=== PATIENT | female | born 1965 | race Caucasian/White ===

== ENCOUNTER 2016-09-18 23:26 | Emergency (ER) | payer MEDICARE, BC ==
--- NOTE | 2016-09-19 00:20 | ED ---
Recheck HPI - General Chief Complaint: Recheck/Abnormal Lab/Rx Stated Complaint: High K+ Sent by doc Time Seen by Provider: 09/19/16 00:00 Source: patient, family Mode of arrival: EMS Limitations: no limitations - History of Present Illness Initial Comments: This is a 50-year-old female with a history of renal transplant in July of this year who presents here in the ED for hyperkalemia. She had blood drawn earlier today and was called by her quill cleaning machine operator out of [facility] who advised her to come emergency department because her potassium is high. The patient states that she has actually no complaints. She's been urinating normally. Has no abdominal or pelvic pain. No fevers or chills. No palpitations or chest pain. She denies any complaints whatsoever. - Related Data Home Medications Medication Instructions Recorded Confirmed Atorvastatin [Lipitor] 10 mg PO HS 07/20/14 09/18/16 [place]-3 Fatty Acids/Fish Oil [Fish 1 cap PO BID 07/20/14 09/18/16 Oil 1,000 mg Softgel] Ranitidine HCl [Zantac] 150 mg PO BID 07/20/14 09/18/16 predniSONE 10 mg PO DAILY 07/20/14 09/18/16 INSULIN LISPRO (HumaLOG) [HumaLOG] See Protocol SQ ACHS 08/30/15 09/18/16 Insulin Glargine [Lantus] 25 units SQ AC-BRKFST 08/30/15 09/18/16 Mycophenolate Mofetil [Cellcept] 1,000 mg PO BID 08/30/15 09/18/16 Tacrolimus [Prograf] 11 mg PO BID 08/30/15 09/18/16 Aspirin [Adult Low Dose Aspirin EC] 81 mg PO DAILY 02/04/16 09/18/16 Multivitamins, Thera [Multivitamin] 1 tab PO DAILY 03/11/16 09/18/16 Ubidecarenone [Co Q-10] 200 mg PO DAILY 03/11/16 09/18/16 Alendronate Sodium [Fosamax] 35 mg PO 09/18/16 Lisinopril [Zestril] 5 mg PO DAILY 09/18/16 09/18/16 Sulfamethoxazole/Trimethoprim 1 each PO 09/18/16 [Bactrim SS 400-80 mg] valGANciclovir [Valcyte] 450 mg PO 09/18/16 Previous Rx's Medication Instructions Recorded Metoprolol Tartrate [Lopressor] 50 mg PO BID #60 tab 07/24/14 Allergies Allergy/AdvReac Type Severity Reaction Status Date / Time iv iron Allergy Rash/Hives Uncoded 05/19/16 13:01 Review of Systems ROS Statement: Those systems with pertinent positive or pertinent negative responses have been documented in the HPI. ROS Other: All systems not noted in ROS Statement are negative. 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 kidney transplant 07-14-2016 Past Anesthesia/Blood Transfusion Reactions: No Reported Reaction Past Psychological History: No Psychological Hx Reported Smoking Status: Former smoker Past Alcohol Use History: None Reported Additional Past Alcohol Use History / Comment(s): STARTED SMOKING AT AGE 14, SMOKED 1 PPD QUIT 2008 Past Drug Use History: None Reported - Past Family History Father Family Medical History: Diabetes Mellitus, Hypertension Mother Family Medical History: AICD/Pacemaker, Congestive Heart Failure (CHF), Coronary Artery Disease (CAD), CVA/TIA, Diabetes Mellitus, Myocardial Infarction ([place]) General Exam - General Exam Comments Initial Comments: Constitutional: Awake alert Appears comfortable Head: Normocephalic atraumatic Eyes: no conjunctival injection No scleral icterus EOMI Neck: No JVD Supple Heart: Regular rate rhythm normal S1-S2 no murmurs Lungs: Clear to auscultation bilaterally No wheezing No rales Abdomen: Soft nondistended nontender Extremities: Non edematous DP pulses intact Radial pulses intact Neuro: A&Ox3 No focal neurologic deficits Psych: Appropriate mood and affect Limitations: no limitations Course Vital Signs 09/18/16 23:46 Temperature 98.0 F Pulse Rate 54 L Respiratory 18 Rate Blood Pressure 189/74 O2 Sat by Pulse 99 Oximetry - Reevaluation(s) Reevaluation #1: 09/19/16 00:20 EKG showing normal sinus rhythm with a rate of 62. No ST segment changes or T- wave inversions. No peaked T waves. QTC is 428. Other intervals are normal. No ectopy. Medical Decision Making - Medical Decision Making This is a 50-year-old female who presents emergency report for hyperkalemia. Repeat labs showed a potassium of 5.3 which is baseline for her. She has no symptoms at this time. This time I feel that she can go home. There is no intervention that was required. I told her to follow-up with her primary doctor. If she has any change in symptoms she can return. All questions were answered. - Lab Data Result diagrams: 09/19/16 00:13 09/19/16 00:13 Lab Results 09/19/16 09/19/16 Range/Units 00:13 00:13 WBC 9.2 (3.8-10.6) k/uL RBC 3.77 L (3.80-5.40) m/uL Hgb 11.3 L (11.4-16.0) gm/dL Hct 35.7 (34.0-46.0) % MCV 94.6 (80.0-100.0) fL MCH 29.9 (25.0-35.0) pg MCHC 31.6 (31.0-37.0) g/dL RDW 16.6 H (11.5-15.5) % Plt Count 298 (150-450) k/uL Neutrophils % 87 % Lymphocytes % 5 % Monocytes % 3 % Eosinophils % 3 % Basophils % 1 % Neutrophils # 8.0 H (1.3-7.7) k/uL Lymphocytes # 0.5 L (1.0-4.8) k/uL Monocytes # 0.3 (0-1.0) k/uL Eosinophils # 0.2 (0-0.7) k/uL Basophils # 0.1 (0-0.2) k/uL Anisocytosis Slight Sodium 138 (137-145) mmol/L Potassium 5.3 H (3.5-5.1) mmol/L Chloride 105 (98-107) mmol/L Carbon Dioxide 22 (22-30) mmol/L Anion Gap 11 mmol/L BUN 43 H (7-17) mg/dL Creatinine 1.10 H (0.52-1.04) mg/dL Est GFR (MDRD) Af Amer >60 (>60 ml/min/1.73 sqM) Est GFR (MDRD) Non-Af 52 (>60 ml/min/1.73 sqM) Glucose 210 H (74-99) mg/dL Calcium 9.6 (8.4-10.2) mg/dL Magnesium 1.8 (1.6-2.3) mg/dL Disposition Clinical Impression: CKD (chronic kidney disease) Disposition: HOME SELF-CARE Condition: Stable Instructions: Hyperkalemia (ED) Additional Instructions: Please monitor your symptoms for palpitations, chest pain, lightheadedness, or decreased urine output. Return to the emergency Department if you develop these. Otherwise follow up with her primary doctor. Referrals: Emely Funez DO [Primary Care Provider] - 1-2 days
[2016-09-19 00:24] LABS: Anisocytosis Slight; Basophils # (A) 0.1 k/uL (0-0.2); Basophils % (A) 1 %; CH 30.5; CHCM 32.4; Eosinophils # (A) 0.2 k/uL (0-0.7); Eosinophils % (A) 3 %; HCT 35.7 % (34.0-46.0); HDW 3.06; HGB 11.3 gm/dL (11.4-16.0); Luc # (Auto) 0.14; Luc % (Auto) 2; Lymphocytes # (A) 0.5 k/uL (1.0-4.8); Lymphocytes % (A) 5 %; MCH 29.9 pg (25.0-35.0); MCHC 31.6 g/dL (31.0-37.0); MCV 94.6 fL (80.0-100.0); Monocytes # (A) 0.3 k/uL (0-1.0); Monocytes % (A) 3 %; Neutrophils % (A) 87 %; RBC 3.77 m/uL (3.80-5.40); RDW 16.6 % (11.5-15.5); WBC 9.2 k/uL (3.8-10.6); WBC (Perox) 9.79
[2016-09-19 00:34] LABS: Anion Gap 11 mmol/L; Blood Urea Nitrogen 43 mg/dL (7-17); Calcium 9.6 mg/dL (8.4-10.2); Carbon Dioxide 22 mmol/L (22-30); Chloride 105 mmol/L (98-107); Glucose 210 mg/dL (74-99); Magnesium 1.8 mg/dL (1.6-2.3); Non-African American GFR(MDRD) 52 (>60 ml/min/1.73 sqM); Potassium 5.3 mmol/L (3.5-5.1); Sodium 138 mmol/L (137-145)
[2016-09-19 01:08] VITALS: BP 146/77; PULSE 57; RESP 16; TEMP 97.6
== END 2016-09-19 01:24 | disposition home or self-care (01) ==
LOC: EC 23:26
DX: I12.9 Hypertensive chronic kidney disease with stage 1 through stage 4 chronic kidney disease, or unspecified chronic kidney disease (principal); N18.9 Chronic kidney disease, unspecified; E87.5 Hyperkalemia; K21.9 Gastro-esophageal reflux disease without esophagitis; E07.9 Disorder of thyroid, unspecified; E11.9 Type 2 diabetes mellitus without complications; Z87.891 Personal history of nicotine dependence; Z79.4 Long term (current) use of insulin; Z79.82 Long term (current) use of aspirin; Z79.52 Long term (current) use of systemic steroids; Z79.899 Other long term (current) drug therapy; Z88.8 Allergy status to other drugs, medicaments and biological substances; Z85.528 Personal history of other malignant neoplasm of kidney; Z94.0 Kidney transplant status
CPT/HCPCS: 36415; 80048; 83735; 85025; 93005; 99285

== ENCOUNTER 2016-12-25 18:34 | Emergency (ER) | payer MEDICARE, BC ==
[2016-12-25 19:23] VITALS: RESP 18
--- NOTE | 2016-12-25 19:46 | ED ---
Recheck HPI - General Chief Complaint: Recheck/Abnormal Lab/Rx Stated Complaint: abn labs Time Seen by Provider: 12/25/16 19:00 Source: patient, RN notes reviewed Mode of arrival: ambulatory Limitations: no limitations - History of Present Illness Initial Comments: This is a 51-year-old female who is status post her second kidney transplant on July 14 of this year was called by the lab and told currently emergency department for evaluation due to elevated potassium level. Patient states she normally does have a somewhat elevated level greater than 5.6 apparently today. He is asymptomatic she has no palpitations dizziness chest pain or shoulder sweats. She states normally she is told to take either Kayexalate her Lasix when the potassium is high. She voices no other complaints at this time. MD Complaint: abnormal lab - Related Data Home Medications Medication Instructions Recorded Confirmed Atorvastatin [Lipitor] 10 mg PO HS 07/20/14 12/25/16 [place]-3 Fatty Acids/Fish Oil [Fish 1 cap PO BID 07/20/14 12/25/16 Oil 1,000 mg Softgel] Ranitidine HCl [Zantac] 150 mg PO BID 07/20/14 12/25/16 predniSONE 5 mg PO DAILY 07/20/14 12/25/16 INSULIN LISPRO (HumaLOG) [HumaLOG] See Protocol SQ ACHS 08/30/15 12/25/16 Insulin Glargine [Lantus] 22 units SQ QAM 08/30/15 12/25/16 Mycophenolate Mofetil [Cellcept] 1,000 mg PO QAM 08/30/15 12/25/16 Tacrolimus [Prograf] 5 mg PO BID 08/30/15 12/25/16 Aspirin [Adult Low Dose Aspirin EC] 81 mg PO HS 02/04/16 12/25/16 Multivitamins, Thera [Multivitamin] 1 tab PO DAILY 03/11/16 12/25/16 Ubidecarenone [Co Q-10] 200 mg PO HS 03/11/16 12/25/16 Alendronate Sodium [Fosamax] 35 mg PO FR 09/18/16 12/25/16 Sulfamethoxazole/Trimethoprim 1 tab PO QAM 09/18/16 12/25/16 [Bactrim SS 400-80 mg] Ergocalciferol (Vitamin D2) 50,000 unit PO TU 12/25/16 12/25/16 [Vitamin D2] Insulin Glargine [Lantus] 18 unit SQ HS 12/25/16 12/25/16 Iron 150mg 150 mg PO DAILY 12/25/16 12/25/16 Metoprolol Tartrate [Lopressor] 25 mg PO BID 12/25/16 12/25/16 Mycophenolate Mofetil [Cellcept] 250 mg PO HS 12/25/16 12/25/16 Tacrolimus [Prograf] 2 mg PO BID 12/25/16 12/25/16 buPROPion [Wellbutrin] 75 mg PO DAILY 12/25/16 12/25/16 Previous Rx's Medication Instructions Recorded Sodium Polystyrene Sulfonate 15 gm PO ONCE #1 ml 12/25/16 [Kayexalate] Allergies Allergy/AdvReac Type Severity Reaction Status Date / Time iv iron Allergy Rash/Hives Uncoded 12/25/16 19:52 Review of Systems ROS Statement: Those systems with pertinent positive or pertinent negative responses have been documented in the HPI. ROS Other: All systems not noted in ROS Statement are negative. Past Medical History Past Medical History: Cancer, Diabetes Mellitus, Dialysis, GERD/Reflux, Hypertension, Pneumonia, Renal Disease, Thyroid Disorder Additional Past Medical History / Comment(s): KIDNEY CA(LT),PERITONEAL DIALYSIS [id number],PANCREATITIS History of Any Multi-Drug Resistant Organisms: C-DIFF Date of last positivie culture/infection: 08/19/15 MDRO Source:: STOOL Additional Past Surgical History / Comment(s): kidney transplant 2008, nephrectomy,D&C. 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 kidney transplant 07-14-2016 Past Anesthesia/Blood Transfusion Reactions: No Reported Reaction Past Psychological History: No Psychological Hx Reported Smoking Status: Former smoker Past Alcohol Use History: None Reported Past Drug Use History: None Reported - Past Family History Father Family Medical History: Diabetes Mellitus, Hypertension Mother Family Medical History: AICD/Pacemaker, Congestive Heart Failure (CHF), Coronary Artery Disease (CAD), CVA/TIA, Diabetes Mellitus, Myocardial Infarction ([place]) General Exam - General Exam Comments Initial Comments: This is a well-developed well-nourished awake alert oriented 3 female Limitations: no limitations General appearance: alert, in no apparent distress Head exam: Present: atraumatic, normocephalic, normal inspection Eye exam: Present: normal appearance, PERRL, EOMI. Absent: scleral icterus, conjunctival injection, periorbital swelling ENT exam: Present: normal exam, mucous membranes moist Neck exam: Present: normal inspection. Absent: tenderness, meningismus, lymphadenopathy Respiratory exam: Present: normal lung sounds bilaterally. Absent: respiratory distress, wheezes, rales, rhonchi, stridor Cardiovascular Exam: Present: regular rate, normal rhythm, normal heart sounds. Absent: systolic murmur, diastolic murmur, rubs, gallop, clicks GI/Abdominal exam: Present: soft, normal bowel sounds. Absent: distended, tenderness, guarding, rebound, rigid Extremities exam: Present: normal inspection, full ROM, normal capillary refill. Absent: tenderness, pedal edema, joint swelling, calf tenderness Back exam: Present: normal inspection Neurological exam: Present: alert, oriented X3, CN II-XII intact Psychiatric exam: Present: normal affect, normal mood Skin exam: Present: warm, dry, intact, normal color. Absent: rash Course Vital Signs 12/25/16 12/25/16 12/25/16 18:53 19:21 20:24 Temperature 97.8 F 97.6 F Pulse Rate 58 L 58 L Respiratory 20 18 18 Rate Blood Pressure 135/69 151/81 O2 Sat by Pulse 99 98 Oximetry Medical Decision Making - Medical Decision Making I did discuss findings with the patient she is asymptomatic. She states her creatinine has been fluctuating. She does have "dysuria from just. It was recommended she increase her oral fluids she'll be given a dose of Kayexalate is a follow-up with her doctor and return when necessary the fluctuation is within the boundaries that she's been noticing. - Lab Data Result diagrams: 12/25/16 19:15 Lab Results 12/25/16 Range/Units 19:15 Sodium 139 (137-145) mmol/L Potassium 5.5 H (3.5-5.1) mmol/L Chloride 106 (98-107) mmol/L Carbon Dioxide 25 (22-30) mmol/L Anion Gap 8 mmol/L BUN 34 H (7-17) mg/dL Creatinine 1.28 H (0.52-1.04) mg/dL Est GFR (MDRD) Af Amer 53 (>60 ml/min/1.73 sqM) Est GFR (MDRD) Non-Af 44 (>60 ml/min/1.73 sqM) Glucose 183 H (74-99) mg/dL Calcium 9.6 (8.4-10.2) mg/dL Total Bilirubin 0.5 (0.2-1.3) mg/dL AST 151 H (14-36) U/L ALT 19 (9-52) U/L Alkaline Phosphatase 53 (38-126) U/L Total Protein 7.1 (6.3-8.2) g/dL Albumin 4.3 (3.5-5.0) g/dL - EKG Data -: EKG Interpreted by Md EKG shows normal: sinus rhythm (Sinus rhythm with a rate of 53 NE interval 118 QRS duration 82 QT/QTC of 464/[address] configuration) Disposition Clinical Impression: Hyperkalemia, Prerenal azotemia, Dehydration Disposition: HOME SELF-CARE Condition: Good Instructions: Hyperkalemia (ED), Dehydration (ED) Prescriptions: Sodium Polystyrene Sulfonate [Kayexalate] 15 gm PO ONCE #1 ml Referrals: Emely Funez DO [Primary Care Provider] - 1-2 days
[2016-12-25 20:18] LABS: Calcium 9.6 mg/dL (8.4-10.2); Potassium 5.5 mmol/L (3.5-5.1); Total Bilirubin 0.5 mg/dL (0.2-1.3); Total Protein 7.1 g/dL (6.3-8.2)
[2016-12-25] MEDS ORDERED: SODIUM POLYSTYRENE SULFONATE 15 GM/60 ML BOTTLE PO ONE (20:46)
[2016-12-25 21:12] VITALS: BP 130/75; PULSE 55; TEMP 97.3
== END 2016-12-25 21:12 | disposition home or self-care (01) ==
LOC: EC 18:34
DX: E87.5 Hyperkalemia (principal); R79.89 Other specified abnormal findings of blood chemistry; E86.0 Dehydration; E11.9 Type 2 diabetes mellitus without complications; K21.9 Gastro-esophageal reflux disease without esophagitis; I10 Essential (primary) hypertension; E07.9 Disorder of thyroid, unspecified; Z85.528 Personal history of other malignant neoplasm of kidney; Z87.891 Personal history of nicotine dependence; Z88.8 Allergy status to other drugs, medicaments and biological substances; Z79.4 Long term (current) use of insulin; Z79.52 Long term (current) use of systemic steroids; Z79.82 Long term (current) use of aspirin; Z79.899 Other long term (current) drug therapy
CPT/HCPCS: 36415; 80053; 93005; 99283

== ENCOUNTER → 2018-03-30 | Outpatient (CLI) | payer MEDICARE, BC ==
--- NOTE | 2018-03-30 14:50 | BD ---
EXAMINATION TYPE: Axial Bone Density DATE OF EXAM: 03/30/2018 COMPARISON: 03.24.2016 CLINICAL HISTORY: 52 YR OLD FEMALE.....ICD-10 CODE: M81.8 OTHER OSTEOPOROSIS Height: 64 Weight: 183 FRAX RISK QUESTIONS: Glucocorticoids (More than 3mos): YES (Ex: prednisone, prednisolone, methylprednisolone, dexamethasone, and hydrocortisone). History of Fracture in Adulthood: YES Secondary Osteoporosis: YES 1. Type 1 Diabetes: YES 2. Hyperthyroidism: YES RISK FACTORS HISTORY OF: FX TO RT FOOT AT 50 YRS OLD Family History of Osteoporosis: YES, MOTHER AND GRANDMOTHER Diet low in dairy products/other sources of calcium: NO Postmenopausal woman: 47 YRS OLD MEDICATIONS: Prednisone or other steroids: YES, HEAVY, RENAL TRANSPLANT PT. How Long FOR 9 YRS Osteoporosis Medications: STOPPED FOSAMAX IN OCTOBER 2017..TOOK FOR FEW YRS Additional Medications: ANTI REJECTION MEDS, BP MEDS, HX OF KIDNEY CA, WELLBUTRIN UNTIL 2 MOS AGO, [facility] ATINS FOR CHOLESTEROL, INSULIN REFLUX MEDICATION, VIT D AND CALCIUM STOPPED FEW MOS AGO, MULTIVITAMIN NOW. Additional History: TRANSPLANT PATIENT, ANXIETY, HYPERTENSION, DIABETIC. EXAM MEASUREMENTS: Bone mineral densitometry was performed using the [employer] System. Bone mineral density as measured about the Lumbar spine is: ----- L1-L4(G/cm2): 1.310 T Score Values are as follows: ----- L1: -0.2 ----- L2: 1.1 ----- L3: 2.2 ----- L4: 0.8 ----- L1-L4: 1.1 Bone mineral density has: Increased 8.3% since study of: 03.24.2016 Bone mineral density about the R hip (g/cm2): 0.704 Bone mineral density about the L hip (g/cm2): 0.713 T Score values are as follows: -----R Neck: -2.0 -----L Neck: -1.9 -----R Total: -2.4 -----L Total: -2.3 Bone mineral density has: Increased 2.3% since study of: 03.24.2016 FRAX%s: THERE IS A 19.4% CHANCE OF A MAJOR OSTEOPOROTIC FX AND A 3.1% FOR A HIP FX.....PROBABILITY OF FX IN 10 YRS TIME IMPRESSION: Osteopenia (T Score between -2.5 and -1). There is slightly increased risk of fracture and the patient may be considered for treatment. Re-Screen 2-5 years. NOTE: T-SCORE=SD OF THE YOUNG ADULT MEAN.
--- NOTE | 2018-04-01 11:44 | MM ---
Reason for exam: screening (asymptomatic). Last mammogram was performed 2 years ago. History: Patient is postmenopausal and has history of other cancer at age 39. Physical Findings: A clinical breast exam by your physician is recommended on an annual basis and results should be correlated with mammographic findings. MG 3D Screening Mammo W/Cad Bilateral CC and MLO view(s) were taken. Prior study comparison: March 24, 2016, bilateral MG 3d screening mammo w/cad. April 22, 2013, [facility] DIGITAL LEFT BREAST MAMMOGRAM w/CAD. There are scattered fibroglandular densities. No significant changes when compared with prior studies. ASSESSMENT: Negative, BI-RAD 1 RECOMMENDATION: Routine screening mammogram of both breasts in 1 year.
== END | disposition home or self-care (01) ==
LOC: RADMAMWWP 13:13
PROVIDERS: ATTEND Family Medicine
DX: Z12.31 Encounter for screening mammogram for malignant neoplasm of breast (principal); M85.80 Other specified disorders of bone density and structure, unspecified site; M81.8 Other osteoporosis without current pathological fracture
CPT/HCPCS: 77063; 77067; 77080

== ENCOUNTER 2018-08-31 16:07 | Emergency (ER) | payer MEDICARE, BC ==
[2018-08-31 16:14] VITALS: RESP 18; TEMP 98.2
[2018-08-31] MEDS ORDERED: SODIUM CHLORIDE 0.9% 1,000 ML IV STA (16:37)
--- NOTE | 2018-08-31 16:47 | ED ---
General Adult HPI - General Source: patient, RN notes reviewed Mode of arrival: wheelchair Limitations: no limitations <Jason Dueñas - Last Filed: 08/31/18 16:59> <Danny Weeks - Last Filed: 08/31/18 20:58> - General Chief complaint: Weakness Stated complaint: weakness-Dr sent Time Seen by Provider: 08/31/18 16:21 - History of Present Illness Initial comments: Patient 52-year-old female significant past medical history for kidney transplant, presented to the emergency room today with a chief complaint of leg weakness. She states that yesterday when she was at her eye doctor's appointment she had her legs crossed when she went to stand up and felt that her legs were unsteady. She states she is continuing to have this feeling today. Patient does admit that she's had some cough congestion over the last month. She denies any fever. She does admit to increased sinus congestion. She states that when she was at the sack cleaning hand office yesterday she had her eyes dilated. She states after that she did have an episode of nausea vomiting. Denies any nausea today. Patient does admit that she followed her family doctor about the symptoms today was advised come here to the emergency room. She does admit that with the sinus congestion she has been expressing headaches over the past week. She states that they were both in the front and back at different times. Patient denies any other complaints. Patient denies any recent fever, chills, shortness of breath, chest pain, back pain, numbness or tingling, visual changes, or any other complaints. (Jason Dueñas) - Related Data Home Medications Medication Instructions Recorded Confirmed Atorvastatin [Lipitor] 10 mg PO HS 07/20/14 08/31/18 O'Neals-3 Fatty Acids/Fish Oil [Fish 1 cap PO DAILY 07/20/14 08/31/18 Oil 1,000 mg Softgel] Ranitidine HCl [Zantac] 150 mg PO BID 07/20/14 08/31/18 predniSONE 5 mg PO DAILY 07/20/14 08/31/18 INSULIN LISPRO (HumaLOG) [HumaLOG] See Protocol SQ ACHS 08/30/15 08/31/18 Insulin Glargine [Lantus] 27 units SQ BID 08/30/15 08/31/18 Mycophenolate Mofetil [Cellcept] 1,000 mg PO BID 08/30/15 08/31/18 Tacrolimus [Prograf] 5 mg PO BID 08/30/15 08/31/18 Aspirin [Adult Low Dose Aspirin EC] 81 mg PO DIRECTED 02/04/16 08/31/18 Multivitamins, Thera [Multivitamin] 1 tab PO DAILY 03/11/16 08/31/18 Ubidecarenone [Co Q-10] 200 mg PO HS 03/11/16 08/31/18 Metoprolol Tartrate [Lopressor] 25 mg PO BID 12/25/16 08/31/18 Tacrolimus [Prograf] 1 mg PO BID 12/25/16 08/31/18 L.acidoph,Paracasei, B.lactis 1 cap PO DAILY 08/31/18 08/31/18 [Probiotic] Allergies Allergy/AdvReac Type Severity Reaction Status Date / Time iv iron Allergy Rash/Hives Uncoded 08/31/18 17:03 Review of Systems ROS Other: All systems not noted in ROS Statement are negative. <Jason Dueñas - Last Filed: 08/31/18 16:59> ROS Other: All systems not noted in ROS Statement are negative. <Danny Weeks - Last Filed: 08/31/18 20:58> ROS Statement: Those systems with pertinent positive or pertinent negative responses have been documented in the HPI. Past Medical History Past Medical History: Cancer, Diabetes Mellitus, Dialysis, GERD/Reflux, Hypertension, Pneumonia, Renal Disease, Thyroid Disorder Additional Past Medical History / Comment(s): KIDNEY CA(LT),PERITONEAL DIALYSIS [id number],PANCREATITIS History of Any Multi-Drug Resistant Organisms: C-DIFF Date of last positivie culture/infection: 08/19/15 MDRO Source:: STOOL Additional Past Surgical History / Comment(s): kidney transplant 2008, nephrectomy,D&C. 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 kidney transplant 07-14-2016 Past Anesthesia/Blood Transfusion Reactions: No Reported Reaction Past Psychological History: No Psychological Hx Reported Smoking Status: Former smoker - Past Family History Father Family Medical History: Diabetes Mellitus, Hypertension Mother Family Medical History: AICD/Pacemaker, Congestive Heart Failure (CHF), Coronary Artery Disease (CAD), CVA/TIA, Diabetes Mellitus, Myocardial Infarction (ND) <Jason Dueñas - Last Filed: 08/31/18 16:59> General Exam Limitations: no limitations <Jason Dueñas - Last Filed: 08/31/18 16:59> General appearance: alert, in no apparent distress Head exam: Present: atraumatic, normocephalic, normal inspection Eye exam: Present: normal appearance, PERRL, EOMI. Absent: scleral icterus, conjunctival injection, periorbital swelling ENT exam: Present: normal exam, mucous membranes moist Neck exam: Present: normal inspection. Absent: tenderness, meningismus, lymphadenopathy Respiratory exam: Present: normal lung sounds bilaterally. Absent: respiratory distress, wheezes, rales, rhonchi, stridor Cardiovascular Exam: Present: regular rate, normal rhythm, normal heart sounds. Absent: systolic murmur, diastolic murmur, rubs, gallop, clicks GI/Abdominal exam: Present: soft, normal bowel sounds. Absent: distended, tenderness, guarding, rebound, rigid Extremities exam: Present: normal inspection, full ROM, normal capillary refill. Absent: tenderness, pedal edema, joint swelling, calf tenderness Back exam: Present: normal inspection Neurological exam: Present: alert, oriented X3, CN II-XII intact Psychiatric exam: Present: normal affect, normal mood Skin exam: Present: warm, dry, intact, normal color. Absent: rash <Danny Weeks - Last Filed: 08/31/18 20:58> - General Exam Comments Initial Comments: General: The patient is awake and alert, in no distress, and does not appear acutely ill. Eye: Pupils are equal, round and reactive to light, extra-ocular movements are intact. No nystagmus. There is normal conjunctiva bilaterally. No signs of icterus. Ears, nose, mouth and throat: There are moist mucous membranes and no oral lesions. Neck: The neck is supple, there is no tenderness or JVD. Cardiovascular: There is a regular rate and rhythm. No murmur, rub or gallop is appreciated. Respiratory: Lungs are clear to auscultation, respirations are non-labored, breath sounds are equal. No wheezes, stridor, rales, or rhonchi. Gastrointestinal: Soft, non-distended, non-tender abdomen without masses or organomegaly noted. There is no rebound or guarding present. No CVA tenderness. Musculoskeletal: Normal ROM, no tenderness. Strength 5/5. Sensation intact. Neurological: A&O x 3. CN II-XII intact, There are no obvious motor or sensory deficits. Coordination appears grossly intact. Speech is normal. Normal finger nose testing. Normal rapid alternating movements. Strength 5/5 bilaterally both upper and lower extremities. Skin: Skin is warm and dry and no rashes or lesions are noted. Psychiatric: Cooperative, appropriate mood & affect, normal judgment. (Jason Dueñas) Course <Jason Dueñas - Last Filed: 08/31/18 16:59> <Danny Weeks - Last Filed: 08/31/18 20:58> Vital Signs 08/31/18 08/31/18 08/31/18 16:11 17:30 18:00 Temperature 98.2 F Pulse Rate 60 55 L 56 L Respiratory 18 14 24 Rate Blood Pressure 151/73 175/87 153/77 O2 Sat by Pulse 99 97 99 Oximetry 08/31/18 08/31/18 18:30 19:00 Temperature Pulse Rate 58 L 60 Respiratory 18 18 Rate Blood Pressure 146/135 175/79 O2 Sat by Pulse 100 99 Oximetry - Reevaluation(s) Reevaluation #1: 08/31/18 16:59 Case discussed and signed out to attending physician Dr. Weeks. (Jason Dueñas) Reevaluation #2: 08/31/18 20:20 Medical record is reviewed (Danny Weeks) Reevaluation #3: 08/31/18 20:20 Patient spoke with at length regarding positive minuses of lumbar puncture. Secondary to come from his immune system and immunosuppressants, patient will elect to go through with LP at this time (Danny Weeks) Reevaluation #4: 08/31/18 20:56 Did attempt lumbar puncture but did just receive) return, subject possibly to bloody tap secondary to hitting a spinal artery versus gross CSF blood, noting again CT brain was negative and patient without headache (Danny Weeks) - Consultations Consultation #1: Spoke with Mingo Lunaum was agreeable for transfer (Danny Weeks) EKG Findings - EKG Comments: EKG Findings:: EKG shows sinus bradycardia rate of 56, MA 124, QRS 94, QTc 434 <Danny Weeks - Last Filed: 08/31/18 20:58> Procedures - Lumbar Puncture Consent Obtained: verbal consent Indication for Procedure: headache, change in mental status Patient Position: sitting upright/leaning forward Skin Prep: Povidone-Iodine 1% Local Anesthetic Used: Lidocaine 1% Spinal Needle Gauge: 22G Spinal Needle Length: 3.5in Interspace Used: L4-L5 Complications: none Patient Tolerated Procedure: well <Danny Weeks - Last Filed: 08/31/18 20:58> Medical Decision Making <Jason Dueñas - Last Filed: 08/31/18 16:59> - Lab Data Result diagrams: 08/31/18 17:20 08/31/18 17:20 - Radiology Data Radiology results: report reviewed (CXR negative for acute disease, CT brain negative for acute disease), image reviewed <Danny Weeks - Last Filed: 08/31/18 20:58> - Medical Decision Making 52 female the ER for evaluation. Patient is nonspecific neurological complaints ataxia weakness and headaches for 3 days. [place] worsened and patient states she does not feel well. Patient is immunosuppressed secondary to steroids and Prograf, patient be transferred for neurological evaluation regarding encephalitis versus subclinical meningitis, place on antibiotics and will also have neurosurgical evaluation (Danny Weeks) - Lab Data Lab Results 08/31/18 08/31/18 08/31/18 Range/Units 17:20 17:20 17:20 WBC 7.6 (3.8-10.6) k/uL RBC 4.23 (3.80-5.40) m/uL Hgb 12.5 (11.4-16.0) gm/dL Hct 38.2 (34.0-46.0) % MCV 90.2 (80.0-100.0) fL MCH 29.7 (25.0-35.0) pg MCHC 32.9 (31.0-37.0) g/dL RDW 14.2 (11.5-15.5) % Plt Count 226 (150-450) k/uL Neutrophils % 80 % Lymphocytes % 14 % Monocytes % 3 % Eosinophils % 2 % Basophils % 1 % Neutrophils # 6.1 (1.3-7.7) k/uL Lymphocytes # 1.0 (1.0-4.8) k/uL Monocytes # 0.3 (0-1.0) k/uL Eosinophils # 0.1 (0-0.7) k/uL Basophils # 0.1 (0-0.2) k/uL Sodium 139 (137-145) mmol/L Potassium 4.9 (3.5-5.1) mmol/L Chloride 110 H (98-107) mmol/L Carbon Dioxide 21 L (22-30) mmol/L Anion Gap 8 mmol/L BUN 27 H (7-17) mg/dL Creatinine 0.95 (0.52-1.04) mg/dL Est GFR (CKD-EPI)AfAm 80 (>60 ml/min/1.73 sqM) Est GFR (CKD-EPI)NonAf 69 (>60 ml/min/1.73 sqM) Glucose 203 H (74-99) mg/dL Calcium 9.8 (8.4-10.2) mg/dL Total Bilirubin 0.3 (0.2-1.3) mg/dL AST 99 H (14-36) U/L ALT 30 (9-52) U/L Alkaline Phosphatase 44 (38-126) U/L Total Creatine Kinase 53 (30-135) U/L CK-MB (CK-2) 0.4 (0.0-2.4) ng/mL CK-MB (CK-2) Rel Index 0.8 Troponin I <0.012 (0.000-0.034) ng/mL Total Protein 6.8 (6.3-8.2) g/dL Albumin 4.1 (3.5-5.0) g/dL Urine Color Urine Appearance (Clear) Urine pH (5.0-8.0) Ur Specific [place] (1.001-1.035) Urine Protein (Negative) Urine Glucose (UA) (Negative) Urine Ketones (Negative) Urine Blood (Negative) Urine Nitrite (Negative) Urine Bilirubin (Negative) Urine Urobilinogen (<2.0) mg/dL Ur Leukocyte Esterase (Negative) 08/31/18 Range/Units 18:48 WBC (3.8-10.6) k/uL RBC (3.80-5.40) m/uL Hgb (11.4-16.0) gm/dL Hct (34.0-46.0) % MCV (80.0-100.0) fL MCH (25.0-35.0) pg MCHC (31.0-37.0) g/dL RDW (11.5-15.5) % Plt Count (150-450) k/uL Neutrophils % % Lymphocytes % % Monocytes % % Eosinophils % % Basophils % % Neutrophils # (1.3-7.7) k/uL Lymphocytes # (1.0-4.8) k/uL Monocytes # (0-1.0) k/uL Eosinophils # (0-0.7) k/uL Basophils # (0-0.2) k/uL Sodium (137-145) mmol/L Potassium (3.5-5.1) mmol/L Chloride (98-107) mmol/L Carbon Dioxide (22-30) mmol/L Anion Gap mmol/L BUN (7-17) mg/dL Creatinine (0.52-1.04) mg/dL Est GFR (CKD-EPI)AfAm (>60 ml/min/1.73 sqM) Est GFR (CKD-EPI)NonAf (>60 ml/min/1.73 sqM) Glucose (74-99) mg/dL Calcium (8.4-10.2) mg/dL Total Bilirubin (0.2-1.3) mg/dL AST (14-36) U/L ALT (9-52) U/L Alkaline Phosphatase (38-126) U/L Total Creatine Kinase (30-135) U/L CK-MB (CK-2) (0.0-2.4) ng/mL CK-MB (CK-2) Rel Index Troponin I (0.000-0.034) ng/mL Total Protein (6.3-8.2) g/dL Albumin (3.5-5.0) g/dL Urine Color Light Yellow Urine Appearance Clear (Clear) Urine pH 5.0 (5.0-8.0) Ur Specific [place] 1.013 (1.001-1.035) Urine Protein Negative (Negative) Urine Glucose (UA) Negative (Negative) Urine Ketones Negative (Negative) Urine Blood Negative (Negative) Urine Nitrite Negative (Negative) Urine Bilirubin Negative (Negative) Urine Urobilinogen <2.0 (<2.0) mg/dL Ur Leukocyte Esterase Negative (Negative) Disposition <Jason Dueñas - Last Filed: 08/31/18 16:59> Is patient prescribed a controlled substance at d/c from ED?: No - Out of Hospital Transfer - Req. Specs Out of Hospital Transfer - Requested Specifics: Other Emergency Center ([facility]) <Danny Weeks - Last Filed: 08/31/18 20:58> Clinical Impression: Headache, Ataxia, Immunosuppression due to drug therapy Narrative: [facility] v Encephalitis (Danny Weeks) Disposition: OTHER INSTITUTION NOT DEFINED Condition: Fair Referrals: Emely Funez DO [Primary Care Provider] - 1-2 days
[2018-08-31 17:36] LABS: Basophils # (A) 0.1 k/uL (0-0.2); Basophils % (A) 1 %; Eosinophils # (A) 0.1 k/uL (0-0.7); Eosinophils % (A) 2 %; HCT 38.2 % (34.0-46.0); HGB 12.5 gm/dL (11.4-16.0); Lymphocytes % (A) 14 %; MCH 29.7 pg (25.0-35.0); MCHC 32.9 g/dL (31.0-37.0); MCV 90.2 fL (80.0-100.0); Mean Platelet Volume 7.4; Monocytes # (A) 0.3 k/uL (0-1.0); Monocytes % (A) 3 %; Neutrophils # (A) 6.1 k/uL (1.3-7.7); Neutrophils % (A) 80 %; Platelet Count 226 k/uL (150-450); RBC 4.23 m/uL (3.80-5.40); RDW 14.2 % (11.5-15.5); WBC 7.6 k/uL (3.8-10.6)
[2018-08-31 17:52] LABS: Creatine Kinase 53 U/L (30-135)
[2018-08-31 17:53] LABS: Albumin 4.1 g/dL (3.5-5.0); Calcium 9.8 mg/dL (8.4-10.2); Potassium 4.9 mmol/L (3.5-5.1); Total Bilirubin 0.3 mg/dL (0.2-1.3); Total Protein 6.8 g/dL (6.3-8.2)
[2018-08-31 18:04] LABS: Creatine Kinase MB 0.4 ng/mL (0.0-2.4); Troponin I <0.012 ng/mL (0.000-0.034)
--- NOTE | 2018-08-31 18:17 | CT ---
EXAMINATION TYPE: CT brain wo con DATE OF EXAM: 08/31/2018 COMPARISON: None HISTORY: Dizziness CT DLP: 1046.4 mGycm Automated exposure control for dose reduction was used. FINDINGS: Ventricles have normal size. There is no mass effect nor midline shift. There is some white matter hy podensity in the left occipital and posterior parietal and temporal lobe. There is no evidence of int racranial hemorrhage. Calvarium is intact. IMPRESSION: Mild atrophy. There is some mild white matter hypodensity left posterior cerebral hemisphere consiste nt with small vessel ischemia. No cortical infarct.
--- NOTE | 2018-08-31 18:24 | XR ---
EXAMINATION TYPE: XR chest 2V DATE OF EXAM: 08/31/2018 COMPARISON: 07/22/2014 HISTORY: Weakness TECHNIQUE: Frontal and lateral views of the chest are obtained. FINDINGS: Heart and mediastinum are normal. Lungs are clear. Diaphragm is normal. Bony thorax is int act. IMPRESSION: Normal chest. No change.
[2018-08-31 18:58] LABS: Appearance,Urine Clear (Clear); Bilirubin,Urine Negative (Negative); Blood,Urine Negative (Negative); Color,Urine Light Yellow; Glucose,Urine (UA) Negative (Negative); Ketones,Urine Negative (Negative); Leukocyte Esterase,Urine Negative (Negative); Nitrite,Urine Negative (Negative); Protein,Urine Negative (Negative); Specific Gravity,Urine 1.013 (1.001-1.035); Urobilinogen,Urine <2.0 mg/dL (<2.0)
[2018-08-31] MEDS ORDERED: VANCOMYCIN IV PER PHARMACY 1 EACH MISC MISCELLANE PRN (20:58)
[2018-08-31 21:26] VITALS: BP 157/83; PULSE 53
[2018-08-31] MEDS ORDERED: SODIUM CHLORIDE 0.9% IV ONE (21:30)
[2018-08-31] MEDS ORDERED: VANCOMYCIN 1,750 MG in SODIUM CHLORIDE 0.9% 500 ML 500 ML IVPB ONE (21:30)
[2018-08-31] MEDS ORDERED: ACYCLOVIR SODIUM IV ONE (21:30)
[2018-08-31 21:31] LABS: Glucose,Whole Blood 89 mg/dL (75-99)
== END 2018-08-31 22:17 | disposition other institution (70) ==
LOC: EC 16:07
DX: R27.0 Ataxia, unspecified (principal); R51 Headache; D89.9 Disorder involving the immune mechanism, unspecified; R53.1 Weakness; R11.2 Nausea with vomiting, unspecified; R09.89 Other specified symptoms and signs involving the circulatory and respiratory systems; K21.9 Gastro-esophageal reflux disease without esophagitis; I12.0 Hypertensive chronic kidney disease with stage 5 chronic kidney disease or end stage renal disease; E11.22 Type 2 diabetes mellitus with diabetic chronic kidney disease; N18.6 End stage renal disease; Z85.528 Personal history of other malignant neoplasm of kidney; Z99.2 Dependence on renal dialysis; Z94.0 Kidney transplant status; Z90.5 Acquired absence of kidney; Z87.891 Personal history of nicotine dependence; Z79.52 Long term (current) use of systemic steroids; Z79.4 Long term (current) use of insulin; Z79.82 Long term (current) use of aspirin; Z79.899 Other long term (current) drug therapy; Z88.8 Allergy status to other drugs, medicaments and biological substances; Z53.8 Procedure and treatment not carried out for other reasons
CPT/HCPCS: 99285; 62270; 96365; 96361 ×4; 36415; 93005; 80053; 82550; 82553; 84484; 85025; 81003; 87070; 87205; 71046; 70450; J0696

== ENCOUNTER → 2022-01-01 | Outpatient (CLI) | payer MEDICARE ==
--- NOTE | 2022-01-03 15:04 | BD ---
EXAMINATION TYPE: Axial Bone Density DATE OF EXAM: 01/01/2022 COMPARISON: 03.30.2018 CLINICAL HISTORY: 56 years year old Female. ICD-10 CODE: [id number] OT DISRD OF BONE DENSITY AND STRUCTU RE Height: 63.6 Weight: 168 FRAX RISK QUESTIONS: Glucocorticoids (More than 3mos): YES (Ex: prednisone, prednisolone, methylprednisolone, dexamethasone, and hydrocortisone). History of Fracture in Adulthood: YES Secondary Osteoporosis: YES 1. Type 1 Diabetes: YES 2. Hyperthyroidism: YES RISK FACTORS HISTORY OF: HX OF FOOT FRACTURE AT 50 YRS OLD Family History of Osteoporosis: YES, NO FX Postmenopausal woman: YES, AT 47 Frequent falls: NEUROPATHY IN FEET Poor Health: GUARDED Hyperparathyroidism: NO Adrenal Insufficiency: NO MEDICATIONS: Prednisone or other steroids: YES, RENAL TRANSPLANT FO 10+ YRS Osteoporosis Medications: IN PAST ONLY, FOR A FEW YRS Additional Medications: ANTI REJECTION MEDS, KID. CA, BP MEDS, WELLBUTRIN, CHOLESTEROL MEDS, INSULIN, REFLUX MEDS, VIT D AND MULTIVITAMIN Additional History: TRANSPLANT PATIENT, ANXIETY, HYPERTENSION, CHOLESTEROL, DIABETES EXAM MEASUREMENTS: Bone mineral densitometry was performed using the [employer] System. Bone mineral density as measured about the Lumbar spine is: ----- L1-L4(G/cm2): 1.214 T Score Values are as follows: ----- L1: -0.5 ----- L2: 0.9 ----- L3: 0.5 ----- L4: 0.0 ----- L1-L4: 0.3 Bone mineral density has: Decreased -8.2% since study of: 03.30.2018 Bone mineral density about the R hip (g/cm2): 0.708 Bone mineral density about the L hip (g/cm2): 0.703 T Score values are as follows: -----R Neck: -2.1 -----L Neck: -2.2 -----R Total: -2.4 -----L Total: -2.4 Bone mineral density has: Decreased -0.7% since study of: 03.30.2018 FRAX%s: The graph provided illustrates a 24.5% chance for a major osteoporotic fx and a 4.4% chance f or the hips probability for fx in 10 years time. IMPRESSION: Osteopenia (T Score between -2.5 and -1). There is slightly increased risk of fracture and the patient may be considered for treatment. Re-Screen 2-5 years. NOTE: T-SCORE=SD OF THE YOUNG ADULT MEAN.
--- NOTE | 2022-01-05 21:46 | MM ---
Reason for Exam: Screening (asymptomatic). Last mammogram was performed 3 year(s) and 9 month(s) ago. Patient History: Menarche at age 10. First Full-Term at age 19. Postmenopausal. Other cancer, age 39. Patient used Hormonal Contraceptives for 2 years. Risk Values: Kayla 5 year model risk: 1.3%. NCI Lifetime model risk: 7.7%. Prior Study Comparison: 04/22/2013 Left Diagnostic Mammogram, [facility]. 03/24/2016 Bilateral Screening Mammogram, [facility]. 03/30/2018 Bilateral Screening Mammogram, [facility]. Tissue Density: There are scattered fibroglandular densities. Findings: Analyzed By CAD. There is no suspicious group of microcalcifications or new suspicious mass in either breast. Overall Assessment: Negative, BI-RAD 1 Management: Screening Mammogram of both breasts in 1 year. 1. The patient to continue monthly breast exams. 2. A clinical breast exam by your physician is recommended on an annual basis. 3. This exam should not preclude additional follow-up of suspicious palpable abnormalities. Electronically signed and approved by: Rosalee Crump M.D. Radiologist
== END | disposition home or self-care (01) ==
LOC: RADMAMWWP 12:51
PROVIDERS: ATTEND Family Medicine
DX: Z12.31 Encounter for screening mammogram for malignant neoplasm of breast (principal); M85.89 Other specified disorders of bone density and structure, multiple sites; Z78.0 Asymptomatic menopausal state
CPT/HCPCS: 77063; 77067; 77080

== ENCOUNTER → 2023-07-09 | Outpatient (CLI) | payer MEDICARE ==
--- NOTE | 2023-07-13 07:26 | MM ---
Reason for Exam: Screening (asymptomatic). Last mammogram was performed 1 year(s) and 7 month(s) ago. Patient History: Menarche at age 10. First Full-Term at age 19. Postmenopausal. Other cancer, age 39. Patient used Hormonal Contraceptives for 2 years. Risk Values: Kayla 5 year model risk: 1.3%. NCI Lifetime model risk: 7.6%. Prior Study Comparison: 03/24/2016 Bilateral Screening Mammogram, [facility]. 03/30/2018 Bilateral Screening Mammogram, [facility]. 01/01/2022 Bilateral MG 3D screening mammo w/cad, [facility]. Tissue Density: The breast tissue is heterogeneously dense. This may lower the sensitivity of mammography. Findings: Analyzed By CAD. Findings appears symmetrical and stable. Calcifications within the left breast. Within the right subareolar breast there is some increasing distortion. Additional workup is recommended. Overall Assessment: Incomplete: need additional imaging evaluation, BI-RAD 0 Management: Diagnostic Mammogram of the right breast. A negative mammogram report should not preclude additional follow up of suspicious palpable abnormalities. Patient should continue monthly self breast exam. A clinical breast exam by your physician is recommended on an annual basis and results should be correlated with mammographic findings. Electronically signed and approved by: Michele Pope D.O. Radiologis
== END | disposition home or self-care (01) ==
LOC: RADMAMWWP 15:17
PROVIDERS: ATTEND Family Medicine
DX: Z12.31 Encounter for screening mammogram for malignant neoplasm of breast (principal); Z78.0 Asymptomatic menopausal state
CPT/HCPCS: 77063; 77067

== ENCOUNTER → 2023-07-16 | Outpatient (CLI) | payer MEDICARE ==
--- NOTE | 2023-07-16 14:28 | MM ---
Reason for Exam: Additional evaluation requested from abnormal screening. Last screening mammogram was performed less than 1 month ago. Patient History: Menarche at age 10. First Full-Term at age 19. Postmenopausal. Other cancer, age 39. Patient used Hormonal Contraceptives for 2 years. Risk Values: Kayla 5 year model risk: 1.3%. NCI Lifetime model risk: 7.6%. Prior Study Comparison: 04/22/2013 Left Diagnostic Mammogram, [facility]. 03/24/2016 Bilateral Screening Mammogram, [facility]. 03/30/2018 Bilateral Screening Mammogram, [facility]. 01/01/2022 Bilateral MG 3D screening mammo w/cad, [facility]. 07/09/2023 Bilateral MG 3D screening mammo w/cad, [facility]. Tissue Density: Right: There are scattered fibroglandular densities. Findings: Analyzed By CAD. Compared appears stable. Under compression on the craniocaudal view and on the standard mediolateral view no persistent distortion is evident. Compression lateral oblique view has a less suspicious distortion. Precautionary 6 month follow-up is recommended. Overall Assessment: Probably benign, BI-RAD 3 Management: Diagnostic Mammogram of the right breast in 6 months. A negative mammogram report should not preclude additional follow up of suspicious palpable abnormalities. Patient should continue monthly self breast exam. A clinical breast exam by your physician is recommended on an annual basis and results should be correlated with mammographic findings. Electronically signed and approved by: Michele Pope D.O. Radiologis
== END | disposition home or self-care (01) ==
LOC: RADMAMWWP 13:42
PROVIDERS: ATTEND Family Medicine
DX: R92.321 Mammographic fibroglandular density, right breast (principal); Z78.0 Asymptomatic menopausal state
CPT/HCPCS: 77065; G0279; 77061

== ENCOUNTER → 2024-04-06 | Outpatient (CLI) | payer MEDICARE ==
--- NOTE | 2024-04-06 14:44 | MM ---
Reason for Exam: Follow-up at short interval from prior study. Last screening mammogram was performed 9 month(s) ago. Patient History: Menarche at age 10. First Full-Term at age 19. Postmenopausal. Other cancer, age 39. Patient used Hormonal Contraceptives for 2 years. Risk Values: Kayla 5 year model risk: 1.4%. NCI Lifetime model risk: 7.4%. Prior Study Comparison: 01/01/2022 Bilateral MG 3D screening mammo w/cad, [facility]. 07/09/2023 Bilateral MG 3D screening mammo w/cad, [facility]. 07/16/2023 Right MG 3D work up w/cad RT, [facility]. Tissue Density: Right: The breasts are heterogeneously dense, which may obscure small masses. Findings: Analyzed By CAD. No persistent nodule or mass seen. Overall Assessment: Benign, BI-RAD 2 Management: Screening Mammogram of both breasts in 6 months. . Results were given to the patient verbally at the time of exam. Patient should continue monthly self-breast exams. A clinical breast exam by your physician is recommended on an annual basis. This exam should not preclude additional follow-up of suspicious palpable abnormalities. Note on Kayla scores and lifetime risk: 1. A Kayla score greater than 3% is considered moderate risk. If this is the case, consider specialist referral to assess eligibility for a risk reducing agent. 2. If overall lifetime risk for the development of breast cancer is 20% or higher, the patient may qualify for future screening with alternating mammogram and breast MRI. [facility], , 04/06/2024 2:40 PM. Electronically signed and approved by: Roel Hackett M.D. Radiologis
--- NOTE | 2024-04-07 10:51 | BD ---
EXAMINATION TYPE: Axial Bone Density DATE OF EXAM: 04/06/2024 CLINICAL HISTORY: 58 years old Female. ICD-10 CODE: Z78.0 ASYMPTOMATIC [place] Height: 64" Weight: 178lbs FRAX RISK QUESTIONS: Alcohol (3 or more units per day): No Family History (Parent hip fracture): No Glucocorticoids (More than 3mos): Yes, daily for several years (Ex: prednisone, prednisolone, methylprednisolone, dexamethasone, and hydrocortisone). History of Fracture in Adulthood: Yes, foot Secondary Osteoporosis: 1. Type 1 Diabetes: No 2. Hyperthyroidism: No 3. Menopause before 45: No 4. Malnutrition: No 5. Chronic liver disease: No Rheumatoid Arthritis: No Current Tobacco Use: No RISK FACTORS HISTORY OF: Hip Fracture (Right/Left): No Spine Fracture: No History of Wrist Fracture: No Surgery to Spine/Hip(right/left)/Wrist (right/left): No MEDICATIONS: Thyroid Medications: No Osteoporosis Medications: No EXAM MEASUREMENTS: Bone mineral densitometry was performed using the [employer] System. Bone mineral density as measured about the Lumbar spine is: ----- L1-L4(G/cm2): 1.273 T Score Values are as follows: ----- L1: 0.3 ----- L2: 0.6 ----- L3: 1.4 ----- L4: 0.5 ----- L1-L4: 0.8 Z Score Values are as follows: ----- L1: 1.0 ----- L2: 1.2 ----- L3: 2.1 ----- L4: 1.1 ----- L1-L4: 1.4 Bone mineral density has: increased 4.9% since study of: 01/01/2022 Bone mineral density about the R hip (g/cm2): 0.649 Bone mineral density about the L hip (g/cm2): 0.678 T Score values are as follows: -----R Neck: -2.5 -----L Neck: -2.4 -----R Total: -2.8 -----L Total: -2.6 Z Score values are as follows: -----R Neck: -1.6 -----L Neck: -1.5 -----R Total: -2.3 -----L Total: -2.1 Bone mineral density has: decreased -5.5% since study of: 01/01/2022 FRAX%s: The graph provided illustrates a 28.7% chance for a major osteoporotic fx and a 6.5% chance f or the hips probability for fx in 10 years time. IMPRESSION: Osteoporosis (T Score less than -2.5). There is increased fracture risk and therapy is usually indicated based on age. Re-Screen 1-2 years. NOTE: T-SCORE=SD OF THE YOUNG ADULT MEAN. [facility], , 04/07/2024 10:48 AM
== END | disposition home or self-care (01) ==
LOC: RADMAMWWP 14:12
PROVIDERS: ATTEND Family Medicine
CPT/HCPCS: 77061; 77065; 77080

== ENCOUNTER → 2024-10-12 | Outpatient (CLI) | payer MEDICARE ==
--- NOTE | 2024-10-12 15:54 | MM ---
Reason for Exam: Screening (asymptomatic). Last mammogram was performed 1 year(s) and 3 month(s) ago. Patient History: Menarche at age 10. First Full-Term at age 19. Postmenopausal. Other cancer, age 39. Patient used Hormonal Contraceptives for 2 years. Risk Values: Kayla 5 year model risk: 1.4%. NCI Lifetime model risk: 7.4%. Prior Study Comparison: 07/09/2023 Bilateral MG 3D screening mammo w/cad, [facility]. 07/16/2023 Right MG 3D work up w/cad RT, [facility]. 04/06/2024 Right MG 3D diag mammo w/cad RT, [facility]. Tissue Density: There are scattered areas of fibroglandular density. Findings: Analyzed By CAD. Areas of asymmetric density are unchanged. There is no suspicious group of microcalcifications or new suspicious mass in either breast. Overall Assessment: Benign, BI-RAD 2 Management: Screening Mammogram of both breasts in 1 year. Patient should continue monthly self-breast exams. A clinical breast exam by your physician is recommended on an annual basis. This exam should not preclude additional follow-up of suspicious palpable abnormalities. Note on Kayla scores and lifetime risk: 1. A Kayla score greater than 3% is considered moderate risk. If this is the case, consider specialist referral to assess eligibility for a risk reducing agent. 2. If overall lifetime risk for the development of breast cancer is 20% or higher, the patient may qualify for future screening with alternating mammogram and breast MRI. [facility], , 10/12/2024 3:51 PM. Electronically signed and approved by: Rosalee Crump M.D. Radiologist
== END | disposition home or self-care (01) ==
LOC: RADMAMWWP 12:49
PROVIDERS: ATTEND Family Medicine
DX: Z12.31 Encounter for screening mammogram for malignant neoplasm of breast (principal); R92.323 Mammographic fibroglandular density, bilateral breasts; Z78.0 Asymptomatic menopausal state; Z92.0 Personal history of contraception
CPT/HCPCS: 77063; 77067